=== PATIENT | female | born 1965 | race Caucasian/White ===

== ENCOUNTER → 2018-05-30 | Outpatient (CLI) | payer BC ==
[~2018-05-30] MED LIST: CHLO1CAP PO; CPR500T PO; DIAZ5TAB3; DICY10CA26 PO; EST30C; HYOS0.3732 PO; IOHEXOL 350 MG/ML 100 ML (OMNIPAQUE 350) VIAL IV ONE; KETO-22 PO; LEVO75TA57 PO; LEVO75TA6; METO-333; NS 250 ML (IVPB) BAG IV ONE; OMEP1CAP18 PO; ONDAN4ODT PO; TRM50T PO; [UNRECOGNIZED DRUG - OTHER]
--- NOTE | 2018-05-30 09:20 | Diagnostic Imaging Report ---
PROCEDURE: CT abdomen and pelvis with contrast. TECHNIQUE: Multiple contiguous axial images were obtained through the abdomen and pelvis after administration of intravenous contrast. INDICATION: Kidney cysts. FINDINGS: Lung bases are clear. No discrete liver mass is identified. Minimal pneumobilia similar to prior study. Gallbladder is surgically absent. The pancreas and spleen are unremarkable. No adrenal mass is seen. A low-density mass in the upper pole left kidney appears to be stable when compared with prior exam at approximately 7 cm. Evaluation for enhancement cannot be performed due to absence of precontrast imaging. Cortical scarring in the upper pole of right kidney is seen. No definite hydronephrosis is identified. There are additional tiny cortical low densities in both kidneys, too small to characterize but likely cysts. Aorta is calcified but not aneurysmal. No central, retroperitoneal or mesenteric lymphadenopathy is seen. The small and large bowel loops are normal caliber. The bladder is unremarkable. No pelvic lymphadenopathy is seen. IMPRESSION: Stable CT of the abdomen and pelvis when compared to prior CT from 02/22/2016. A 7 cm low-density left adrenal mass appears stable and presumably a cyst. No new abnormality is seen. Dictated by: Dictated on workstation # [id number]
== END ==
LOC: RAD 08:38
PROVIDERS: ATTEND Nurse Practitioner Family
DX: N28.1 Cyst of kidney, acquired (principal)
CPT/HCPCS: 74177